=== PATIENT | male | born 1950 | race Caucasian/White ===

== ENCOUNTER → 2018-03-05 | Emergency (ER) | payer MEDICARE ==
[~2018-03-05] VITALS: Ht 182.9 cm; Wt 210.0 kg
[~2018-03-05] MED LIST: AMIO200T42 PO; ASPI-1264 PO; CLOP75TA35 PO; Dextrose 10%-water IV solution 1,000 ML IV ONE; Dextrose 10%-water IV solution 1,000 ML IV SCH; INSU300I SQ; ISOS60TA4 PO; LANTUS SQ; LEVO175T52 PO; LISI40TA4 PO; LOP25T PO; METF1000 PO; NORCO10T PO; PANT40TA39 PO; TEST200V10 IM; ZOC40T PO; dexamethasone sod phosphate 10mg/ml inj IV STA; normal saline 1000ML IV soln IVB ONE; sodium chloride inj. 154 MEQ in Dextrose 10%-water IV solution 961.5 ML IV SCH
[2018-03-05] MEDS: dextrose 5%-water 1,000 ML IV SCH ×2 (06:27→08:15)
[2018-03-05 06:35] LABS: BASOPHILS % (AUTO) 0.2 % (0-1); EOSINOPHILS # (AUTO) 0.1 X10'3 (0-0.9); EOSINOPHILS % (AUTO) 2.2 % (0-6); HEMATOCRIT 34.2 % (42.0-52.0); HEMOGLOBIN 11.2 g/dl (14.0-17.9); LYMPHOCYTES # (AUTO) 0.5 X10'3 (1.1-4.8); LYMPHOCYTES % (AUTO) 6.9 % (21-51); MEAN CORPUSCULAR HEMOGLOBIN 25.3 PG (27.0-31.0); MEAN CORPUSCULAR HGB CONC 32.8 % (33.0-36.5); MEAN CORPUSCULAR VOLUME 77.3 FL (78-98); MEAN PLATELET VOLUME 8.7 FL (7.4-10.4); MONOCYTES # (AUTO) 0.4 X10'3 (0-0.9); MONOCYTES % (AUTO) 6.7 % (2-12); NEUTROPHILS # (AUTO) 5.6 X10'3 (1.8-7.7); PLATELET COUNT 236 X10'3 (140-440); RED BLOOD COUNT 4.43 X10'6 (4.70-6.10); RED CELL DISTRIBUTION WIDTH 17.6 % (11.5-14.5); WHITE BLOOD COUNT 6.6 X10'3 (4.5-11.0)
[2018-03-05 06:37] LABS: CLARITY,URINE CLEAR (Clear); COLOR,URINE YELLOW (Yellow); GLUCOSE, URINE NEGATIVE (Neg); KETONES,URINE NEGATIVE (Neg); LEUKOCYTE ESTERASE ,URINE NEGATIVE (Neg); NITRITES, URINE NEGATIVE (Neg); OCCULT BLOOD,URINE NEGATIVE (Neg); PH,URINE 5.5 (4.8-8.0); PROTEIN,URINE NEGATIVE (Neg); UROBILINOGEN,URINE 0.2 E.U/dL (0.2-1.0)
[2018-03-05 06:39] LABS: UA COLLECTION TYPE CLN CATCH MIDSTREAM
[2018-03-05 06:40] LABS: INR 0.9 INR; PARTIAL THROMBOPLASTIN TIME 26 SECONDS (22-32); PROTHROMBIN TIME 9.8 SECONDS (9.0-12.0)
[2018-03-05 06:42] LABS: ALANINE AMINOTRANSFERASE 31 U/L (12-78); ALBUMIN 3.5 G/DL (3.4-5.0); ALBUMIN/GLOBULIN RATIO 1.1 (1.1-1.5); ALKALINE PHOSPHATASE 51 IU/L (46-116); ANION GAP 5 (8-16); ASPARTATE AMINO TRANSFERASE 24 U/L (10-37); BILIRUBIN,TOTAL 0.2 MG/DL (0.1-1.0); BLOOD UREA NITROGEN 19 MG/DL (7-18); BUN/CREATININE RATIO 17.1 (5.4-32.0); CALCIUM 8.5 MG/DL (8.5-10.1); CHLORIDE 106 MMOL/L (99-107); CREATININE 1.11 MG/DL (0.60-1.10); GLUCOSE 78 MG/DL (70-104); POTASSIUM 4.3 MMOL/L (3.5-5.1); SODIUM 138 MMOL/L (135-145); TOTAL CARBON DIOXIDE 27.4 MMOL/L (24-32); TOTAL PROTEIN 6.8 G/DL (6.4-8.2); eGFR 66 ML/MIN
[2018-03-05 06:50] LABS: URINE AMPHETAMINE SCREEN NEGATIVE (Neg); URINE BARBITUATE SCREEN NEGATIVE (Neg); URINE BENZODIAZEPINES SCREEN POSITIVE (Neg); URINE CANNABINOID SCREEN POSITIVE (Neg); URINE COCAINE SCREEN NEGATIVE (Neg); URINE METHADONE SCREEN NEGATIVE (Neg); URINE OPIATE SCREEN POSITIVE (Neg); URINE PHENCYCLIDINE SCREEN NEGATIVE (Neg)
[2018-03-05 11:17] VITALS: BP 169/92
== END | disposition home or self-care (01) ==
LOC: ER 06:02
DX: R41.82 Altered mental status, unspecified (principal); E16.2 Hypoglycemia, unspecified; I25.10 Atherosclerotic heart disease of native coronary artery without angina pectoris; I10 Essential (primary) hypertension; F17.210 Nicotine dependence, cigarettes, uncomplicated; Z88.5 Allergy status to narcotic agent; Z88.8 Allergy status to other drugs, medicaments and biological substances; Z79.82 Long term (current) use of aspirin; Z79.899 Other long term (current) drug therapy
CPT/HCPCS: 36415; 71045; 72040; 80053; 80305; 81003; 82140; 82948; 83880; 84484; 85025; 85610; 85730; 93005; 96374; 99285; J1100; J7042; J7070; J7131

== ENCOUNTER → 2018-06-09 | Outpatient (CLI) | payer MEDICARE ==
[~2018-06-09] MED LIST changes: -Dextrose 10%-water IV solution 1,000 ML IV ONE; -Dextrose 10%-water IV solution 1,000 ML IV SCH; -dexamethasone sod phosphate 10mg/ml inj IV STA; -normal saline 1000ML IV soln IVB ONE; -sodium chloride inj. 154 MEQ in Dextrose 10%-water IV solution 961.5 ML IV SCH
[2018-06-09 09:11] LABS: TOTAL HEMOGLOBIN 13.5 G/dl (14.0-18.0)
== END | disposition home or self-care (01) ==
LOC: RT 08:37
PROVIDERS: ATTEND Internal Medicine Cardiovascular Disease
DX: R06.02 Shortness of breath (principal); Z51.81 Encounter for therapeutic drug level monitoring; I10 Essential (primary) hypertension; E11.9 Type 2 diabetes mellitus without complications; Z79.899 Other long term (current) drug therapy; Z96.651 Presence of right artificial knee joint; Z79.82 Long term (current) use of aspirin; Z79.84 Long term (current) use of oral hypoglycemic drugs; Z87.891 Personal history of nicotine dependence; I25.10 Atherosclerotic heart disease of native coronary artery without angina pectoris; Z98.61 Coronary angioplasty status
CPT/HCPCS: 71046; 85018; 94010; 94727; 94729

== ENCOUNTER 2019-10-04 04:17 | Outpatient (CLI) | payer MEDICARE | END 2019-10-04 23:59 | disposition home or self-care (01) | LOC: DIABETIC 04:17 | PROVIDERS: ATTEND Internal Medicine | DX: E11.65 Type 2 diabetes mellitus with hyperglycemia (principal); E11.40 Type 2 diabetes mellitus with diabetic neuropathy, unspecified; I10 Essential (primary) hypertension | CPT/HCPCS: G0108 ==

== ENCOUNTER 2022-05-26 21:06 | Emergency (ER) | payer MEDICARE ==
[~2022-05-26] VITALS: Ht 182.9 cm; Wt 81.8 kg
[~2022-05-26 21:06] MED LIST changes: +CLOP75TA34 PO; -CLOP75TA35 PO; -ISOS60TA4 PO; +ISOS60TA71 PO; +LISI40TA13 PO; -LISI40TA4 PO; -TEST200V10 IM; +TEST200V33 IM
[2022-05-26 21:11] VITALS: BP 104/62
[2022-05-26 21:34] LABS: BASOPHILS % (AUTO) 0.7 % (0-1); EOSINOPHILS # (AUTO) 0.1 X10'3 (0-0.9); EOSINOPHILS % (AUTO) 2.4 % (0-6); HEMATOCRIT 34.3 % (42.0-52.0); HEMOGLOBIN 11.3 g/dl (14.0-17.9); LYMPHOCYTES % (AUTO) 19.5 % (21-51); MEAN CORPUSCULAR HEMOGLOBIN 28.9 PG (27.0-31.0); MEAN CORPUSCULAR VOLUME 87.5 FL (78-98); MEAN PLATELET VOLUME 8.2 FL (7.4-10.4); MONOCYTES # (AUTO) 0.7 X10'3 (0-0.9); MONOCYTES % (AUTO) 13.7 % (2-12); NEUTROPHILS # (AUTO) 3.3 X10'3 (1.8-7.7); NEUTROPHILS % (AUTO) 63.7 % (42-75); PLATELET COUNT 240 X10'3 (140-440); RED BLOOD COUNT 3.92 X10'6 (4.70-6.10); RED CELL DISTRIBUTION WIDTH 14.8 % (11.5-14.5); WHITE BLOOD COUNT 5.2 X10'3 (4.5-11.0)
[2022-05-26 21:47] LABS: ALANINE AMINOTRANSFERASE 20 U/L (12-78); ALBUMIN 3.9 G/DL (3.4-5.0); ALBUMIN/GLOBULIN RATIO 1.2 (1.1-1.5); ALKALINE PHOSPHATASE 60 IU/L (46-116); ANION GAP 8 (8-16); ASPARTATE AMINO TRANSFERASE 14 U/L (10-37); BILIRUBIN,TOTAL 0.2 MG/DL (0.1-1.0); BLOOD UREA NITROGEN 31 MG/DL (7-18); BUN/CREATININE RATIO 15.7 (5.4-32.0); CHLORIDE 102 MMOL/L (99-107); CREATININE 1.98 MG/DL (0.60-1.10); GLUCOSE 119 MG/DL (70-104); POTASSIUM 4.6 MMOL/L (3.5-5.1); SODIUM 139 MMOL/L (135-145); TOTAL CARBON DIOXIDE 28.7 MMOL/L (24-32); TOTAL PROTEIN 7.1 G/DL (6.4-8.2); eGFR 33 ML/MIN
== END 2022-05-27 05:10 | disposition left against medical advice (07) ==
LOC: ER 21:06
DX: R07.89 Other chest pain (principal); Z53.21 Procedure and treatment not carried out due to patient leaving prior to being seen by health care provider
CPT/HCPCS: 36415; 71045; 80053; 83880; 84484; 85025

== ENCOUNTER 2022-06-03 18:40 | Emergency (ER) | payer MEDICARE ==
[~2022-06-03] VITALS: Ht 182.9 cm; Wt 81.2 kg
[2022-06-03 20:09] LABS: BASOPHILS % (AUTO) 0.6 % (0-1); EOSINOPHILS # (AUTO) 0.1 X10'3 (0-0.9); EOSINOPHILS % (AUTO) 2.3 % (0-6); HEMATOCRIT 34.7 % (42.0-52.0); HEMOGLOBIN 11.5 g/dl (14.0-17.9); LYMPHOCYTES # (AUTO) 0.6 X10'3 (1.1-4.8); LYMPHOCYTES % (AUTO) 12.1 % (21-51); MEAN CORPUSCULAR HEMOGLOBIN 28.7 PG (27.0-31.0); MEAN CORPUSCULAR HGB CONC 33.1 g/dL (33.0-36.5); MEAN CORPUSCULAR VOLUME 86.9 FL (78-98); MEAN PLATELET VOLUME 8.3 FL (7.4-10.4); MONOCYTES # (AUTO) 0.6 X10'3 (0-0.9); MONOCYTES % (AUTO) 11.3 % (2-12); NEUTROPHILS # (AUTO) 3.8 X10'3 (1.8-7.7); NEUTROPHILS % (AUTO) 73.7 % (42-75); PLATELET COUNT 220 X10'3 (140-440); RED BLOOD COUNT 3.99 X10'6 (4.70-6.10); RED CELL DISTRIBUTION WIDTH 14.3 % (11.5-14.5); WHITE BLOOD COUNT 5.1 X10'3 (4.5-11.0)
[2022-06-03 20:20] LABS: ALANINE AMINOTRANSFERASE 23 U/L (12-78); ALBUMIN 3.9 G/DL (3.4-5.0); ALBUMIN/GLOBULIN RATIO 1.2 (1.1-1.5); ALKALINE PHOSPHATASE 55 IU/L (46-116); ANION GAP 10 (8-16); ASPARTATE AMINO TRANSFERASE 18 U/L (10-37); BILIRUBIN,TOTAL 0.3 MG/DL (0.1-1.0); BLOOD UREA NITROGEN 34 MG/DL (7-18); BUN/CREATININE RATIO 15.9 (5.4-32.0); CALCIUM 9.1 MG/DL (8.5-10.1); CHLORIDE 102 MMOL/L (99-107); CREATININE 2.14 MG/DL (0.60-1.10); GLUCOSE 120 MG/DL (70-104); POTASSIUM 5.3 MMOL/L (3.5-5.1); SODIUM 137 MMOL/L (135-145); TOTAL CARBON DIOXIDE 25.5 MMOL/L (24-32); TOTAL PROTEIN 7.1 G/DL (6.4-8.2); eGFR 31 ML/MIN
[2022-06-03] MEDS ORDERED: normal saline 1000ML IV soln IVB ONE (20:30)
[2022-06-03 21:56] LABS: CLARITY,URINE CLEAR (Clear); COLOR,URINE YELLOW (Yellow); GLUCOSE, URINE NEGATIVE (Neg); KETONES,URINE TRACE mg/dl (Neg); LEUKOCYTE ESTERASE ,URINE NEGATIVE (Neg); NITRITES, URINE NEGATIVE (Neg); OCCULT BLOOD,URINE NEGATIVE (Neg); PROTEIN,URINE NEGATIVE (Neg); UROBILINOGEN,URINE 0.2 E.U/dL (0.2-1.0)
[2022-06-03 22:07] LABS: UA COLLECTION TYPE CLN CATCH MIDSTREAM
[2022-06-03 22:29] VITALS: BP 132/90
== END 2022-06-03 22:31 | disposition home or self-care (01) ==
LOC: ER 18:41
DX: I95.9 Hypotension, unspecified (principal); E86.0 Dehydration; I11.9 Hypertensive heart disease without heart failure; Z88.5 Allergy status to narcotic agent; Z88.8 Allergy status to other drugs, medicaments and biological substances; Z79.899 Other long term (current) drug therapy
CPT/HCPCS: 36415; 71045; 80053; 81003; 82948; 83880; 84484; 85025; 93005; 96360; 99285; J7030

== ENCOUNTER 2022-10-07 03:26 | Emergency (ER) | payer MEDICARE ==
[~2022-10-07] VITALS: Ht 182.9 cm; Wt 79.5 kg
[2022-10-07] MEDS ORDERED: acetaminophen 325mg tablet PO ONE (04:00)
[2022-10-07 05:45] VITALS: BP 153/91
--- NOTE | 2022-10-07 10:01 | NUR ---
around 0910 pt was walking outside of his room. I asked him to go back to his room and sit down since he checked in for mechanical fall and I could tell he was confused. I held on to him while trying to help him back to his room while I explained why it was unsafe for him to be walking around.He started to make threats and tried to swing but I had his arms so he couldnt.I helped him into his room where he tried to get more agressive and he sat on the bed rail and it broke and he fell on to his butt and pulled me down with him. Leeann Charge nurse, Esmer Byrd and my self helped him back to his bed.
[2022-10-07] MEDS ORDERED: LORazepam 1 MG tablet PO PRN (10:20)
--- NOTE | 2022-10-07 11:21 | NUR ---
Patient endorsed to Billie BENJAMIN.
[2022-10-14] MEDS ORDERED: LEVO125T PO (15:07)
[2022-10-14] MEDS ORDERED: METO50TA16 PO (15:19)
[2022-10-14] MEDS ORDERED: BUPR-72 PO (15:19)
[2022-10-14] MEDS ORDERED: ISOS30TA84 PO (15:19)
[2022-10-14] MEDS ORDERED: LORA-269 PO (15:19)
[2022-10-14] MEDS ORDERED: DONE10TA44 PO (15:19)
[2022-10-14] MEDS ORDERED: LISI20TA28 PO (15:19)
[2022-10-14] MEDS ORDERED: AMIO200T27 PO (15:19)
[2022-10-14] MEDS ORDERED: CLOP75TA33 PO (15:19)
[2022-10-14] MEDS ORDERED: LEVO125T8 PO (15:19)
[2022-10-14] MEDS ORDERED: ASPI-611 PO (15:19)
[2022-10-14] MEDS ORDERED: PANT-47 PO (15:19)
[2022-10-14] MEDS ORDERED: METF-900 PO (15:19)
[2022-10-14] MEDS ORDERED: ROSU10TA28 PO (15:19)
[2022-10-14] MEDS ORDERED: HYDR-3972 PO (15:19)
== END 2022-10-07 15:00 | disposition home or self-care (01) ==
LOC: ER 03:27
DX: M47.814 Spondylosis without myelopathy or radiculopathy, thoracic region (principal); R41.82 Altered mental status, unspecified; S09.90XA Unspecified injury of head, initial encounter; M54.6 Pain in thoracic spine; I10 Essential (primary) hypertension; Z88.5 Allergy status to narcotic agent; Z88.8 Allergy status to other drugs, medicaments and biological substances; W19.XXXA Unspecified fall, initial encounter; Y93.89 Activity, other specified; Y92.89 Other specified places as the place of occurrence of the external cause; Y99.8 Other external cause status
CPT/HCPCS: 70450; 72125; 72128; 99284; A6212

== ENCOUNTER 2022-12-18 11:34 | Emergency (ER) | payer MEDICARE, OTHER ==
[~2022-12-18] VITALS: Ht 182.9 cm; Wt 81.8 kg
[~2022-12-18 11:34] MED LIST changes: +AMIO200T27 PO; -AMIO200T42 PO; -ASPI-1264 PO; +ASPI-611 PO; +BUPR-72 PO; +CLOP75TA33 PO; -CLOP75TA34 PO; +DONE10TA44 PO; +HYDR-3973 PO; -INSU300I SQ; +ISOS30TA84 PO; -ISOS60TA71 PO; -LANTUS SQ; -LEVO175T52 PO; +LEVO200T8 PO; +LISI20TA28 PO; -LISI40TA13 PO; -LOP25T PO; +LORA-269 PO; +METF-900 PO; -METF1000 PO; +METO50TA16 PO; -NORCO10T PO; +PANT-47 PO; -PANT40TA39 PO; +QUET50TA24 PO; +ROSU10TA28 PO; -TEST200V33 IM; -ZOC40T PO
[2022-12-18] MEDS ORDERED: normal saline 1000ML IV soln IVB ONE (11:50)
[2022-12-18 12:26] LABS: ALANINE AMINOTRANSFERASE 26 U/L (12-78); ALBUMIN 3.4 G/DL (3.4-5.0); ALKALINE PHOSPHATASE 64 IU/L (46-116); ANION GAP 7 (8-16); ASPARTATE AMINO TRANSFERASE 36 U/L (10-37); BILIRUBIN,TOTAL 0.3 MG/DL (0.1-1.0); BLOOD UREA NITROGEN 15 MG/DL (7-18); BUN/CREATININE RATIO 15.8 (10.0-20.0); CALCIUM 8.9 MG/DL (8.5-10.1); CHLORIDE 105 MMOL/L (99-107); CREATININE 0.95 MG/DL (0.60-1.10); GLUCOSE 144 MG/DL (70-104); POTASSIUM 3.9 MMOL/L (3.5-5.1); SODIUM 141 MMOL/L (135-145); TOTAL CARBON DIOXIDE 29.3 MMOL/L (24-32); TOTAL PROTEIN 6.9 G/DL (6.4-8.2); eGFR 78 ML/MIN
[2022-12-18 12:29] LABS: CLARITY,URINE CLEAR (Clear); COLOR,URINE YELLOW (Yellow); GLUCOSE, URINE NEGATIVE (Neg); KETONES,URINE NEGATIVE (Neg); LEUKOCYTE ESTERASE ,URINE NEGATIVE (Neg); NITRITES, URINE NEGATIVE (Neg); OCCULT BLOOD,URINE TRACE-INTACT (Neg); PH,URINE 6.5 (4.8-8.0); PROTEIN,URINE NEGATIVE (Neg); UROBILINOGEN,URINE 0.2 E.U/dL (0.2-1.0)
[2022-12-18 12:34] LABS: UA COLLECTION TYPE STRAIGHT CATH
[2022-12-18 12:37] LABS: MEAN CORPUSCULAR HEMOGLOBIN 26.6 PG (27.0-31.0); RED BLOOD COUNT 4.51 X10'6 (4.70-6.10); RED CELL DISTRIBUTION WIDTH 14.9 % (11.5-14.5)
[2022-12-18 12:38] LABS: BASOPHILS % (AUTO) 0.5 % (0-1); EOSINOPHILS % (AUTO) 0.8 % (0-6); HEMATOCRIT 36.8 % (42.0-52.0); LYMPHOCYTES # (AUTO) 0.6 X10'3 (1.1-4.8); LYMPHOCYTES % (AUTO) 11.5 % (21-51); MEAN CORPUSCULAR HGB CONC 32.6 g/dL (33.0-36.5); MEAN CORPUSCULAR VOLUME 81.6 FL (78-98); MEAN PLATELET VOLUME 7.9 FL (7.4-10.4); MONOCYTES # (AUTO) 0.6 X10'3 (0-0.9); NEUTROPHILS # (AUTO) 4.3 X10'3 (1.8-7.7); NEUTROPHILS % (AUTO) 77.2 % (42-75); PLATELET COUNT 249 X10'3 (140-440); WHITE BLOOD COUNT 5.6 X10'3 (4.5-11.0)
[2022-12-18 12:58] LABS: HYALINE CASTS 0-3 /LPF (NEGATIVE); MUCUS STRANDS FEW /LPF (Neg); SQUAMOUS EPITHELIAL CELL,UR FEW /LPF (FEW)
[2022-12-18 13:02] LABS: TRANSITIONAL EPI CELLS,URINE FEW /HPF
[2022-12-18 13:03] LABS: BACTERIA,URINE FEW /HPF (Neg); RBC,URINE 0-2 /HPF (0-2); WBC,URINE 0-4 /HPF (0-4)
--- NOTE | 2022-12-18 14:33 | NUR ---
DMITRI LIMA CALLED RN AND STATED THAT AT PT LAST ADMISSION A REQUEST WAS SENT TO [facility] AND HE WAS DECLINED. PT IS AT BEDSIDE. PER DMITRI PT WILL NEED TO BE REFERRED TO [facility] BY HIS PCP. RN WILL PERFORM GAIT TEST AND IF PASSED PT WILL BE DISCHARGED.
--- NOTE | 2022-12-18 14:38 | NUR ---
CORRECTION TO LAST NOTE CM NAME IS FADUMO. DR JOHNSTON RECOMMENDED SHE COME TO PT BEDSIDE AND EXPLAIN PLACEMENT. RN CALLED FADUMO AND SHE WILL COME DISCUSS WITH PT.
--- NOTE | 2022-12-18 15:12 | NUR ---
RN PERFORMED GAIT TEST WITH PT. PT WAS ABLE TO AMBULATE WITH WALKER INDEPENDENT WITH DIRECTION AND INSTRUCTION.
--- NOTE | 2022-12-18 15:13 | NUR ---
RN CALLED PT TO INFORM HER PT IS READY FOR DISCHARGE. PER PT SHE WILL RETURN IN 5 MINS. RN PREPARING PT FOR DISCHARGE.
[2022-12-18 15:14] VITALS: BP 120/68
== END 2022-12-18 15:32 | disposition home or self-care (01) ==
LOC: ER 11:34
DX: F03.90 Unspecified dementia, unspecified severity, without behavioral disturbance, psychotic disturbance, mood disturbance, and anxiety (principal); I10 Essential (primary) hypertension; Z88.5 Allergy status to narcotic agent; Z88.8 Allergy status to other drugs, medicaments and biological substances
CPT/HCPCS: 36415; 71045; 80053; 81001; 82948; 83605; 84484; 85025; 87040; 93005; 99285; J7030